=== PATIENT | female | born 1995 | race Caucasian/White ===

== ENCOUNTER 2017-08-13 06:42 | Day surgery (SDC) | payer OTHER ==
[2017-08-10 16:28] VITALS: BMI 25.1
[2017-08-13] VITALS (16 sets, daily range): BP systolic 138–164; BP diastolic 66–104; PULSE 66–96; RESP 12–25; Ht 167.6 cm; Wt 72.0 kg
[~2017-08-13] VITALS: Ht 167.6 cm; Wt 72.0 kg
[~2017-08-13 06:42] MED LIST: AMPH10CA9 PO; AMPH15TA PO; BIRTH CONTROL PO
[2017-08-13] MEDS ORDERED: ROCURONIUM 50 MG INJ ONE (07:49)
[2017-08-13] MEDS ORDERED: LIDOCAINE 2% (SDV) 5 ML INJ ONE (07:50)
[2017-08-13] MEDS ORDERED: MIDAZOLAM 1 MG/ML 2 ML INJ ONE (07:50)
[2017-08-13] MEDS ORDERED: ONDANSETRON 4 MG INJ ONE (07:50)
[2017-08-13] MEDS ORDERED: CEFAZOLIN 1 GM INJ ONE (07:50)
[2017-08-13] MEDS ORDERED: KETOROLAC 30 MG INJ ONE (07:50)
[2017-08-13] MEDS ORDERED: DEXAMETHASONE 4 MG/ML 1 ML INJ ONE (07:50)
[2017-08-13] MEDS ORDERED: PROPOFOL 20 ML ONE (07:50)
[2017-08-13] MEDS ORDERED: FENTAnyl 50 MCG/ML VIAL ONE (07:50)
[2017-08-13] MEDS ORDERED: NEOSTIGMINE 3 MG/3 ML SYRINGE ONE (07:50)
[2017-08-13] MEDS ORDERED: ROPIVACAINE 0.5 % 30 ML VIAL ONE ×2 (07:50→10:13)
--- NOTE | 2017-08-13 08:45 | OPPN ---
Date/Time of Note Date/Time of Note DATE: 08/13/17 TIME: 08:43 Operative Report Preoperative Diagnosis Retained painful hardware R ankle Postoperative Diagnosis same Operation/Procedure Performed Removal of deep hardware R ankle Surgeon see signature line respiratory care assistant MD Pebbles Anesthesia: general Estimated blood loss: minimal Transfusion Required none Specimen none Grafts/Implants none Complications none PATRICK JUAREZ MD Aug 13, 2017 08:45
--- NOTE | 2017-08-13 08:45 | OPPN ---
Date/Time of Note Date/Time of Note DATE: 08/13/17 TIME: 08:43 Operative Report Preoperative Diagnosis Retained painful hardware R ankle Postoperative Diagnosis same Operation/Procedure Performed Removal of deep hardware R ankle Surgeon see signature line faculty i on call medical assistant MD Pebbles Anesthesia: general Estimated blood loss: minimal Transfusion Required none Specimen none Grafts/Implants none Complications none PATRICK JUAREZ MD Aug 13, 2017 08:45
--- NOTE | 2017-08-13 08:45 | OPPN ---
Date/Time of Note Date/Time of Note DATE: 08/13/17 TIME: 08:43 Operative Report Preoperative Diagnosis Retained painful hardware R ankle Postoperative Diagnosis same Operation/Procedure Performed Removal of deep hardware R ankle Surgeon see signature line assistant librarian MD Pebbles Anesthesia: general Estimated blood loss: minimal Transfusion Required none Specimen none Grafts/Implants none Complications none PATRICK JUAREZ MD Aug 13, 2017 08:45
[2017-08-13] MEDS ORDERED: MIDAZOLAM 1 MG/ML 2 ML INJ IV PRN (10:00)
[2017-08-13] MEDS ORDERED: DIPHENHYDRAMINE 50 MG INJ IV PRN (10:00)
[2017-08-13] MEDS ORDERED: MEPERIDINE 25 MG INJ IV PRN (10:00)
[2017-08-13] MEDS ORDERED: ALBUTEROL 0.083% (NEB) 2.5 MG/3 ML AMP HHN PRN (10:00)
[2017-08-13] MEDS ORDERED: LABETALOL HCL 20MG INJ IV PRN (10:00)
[2017-08-13] MEDS ORDERED: FENTAnyl 50 MCG/ML VIAL IV PRN ×3 (10:00)
[2017-08-13] MEDS ORDERED: EPHEDrine SULFATE 50 MG/5 ML SYG IV PRN (10:00)
[2017-08-13] MEDS ORDERED: IPRATROPIUM (NEB) 0.5 MG/2.5 ML AMP HHN PRN (10:00)
[2017-08-13] MEDS ORDERED: HYDROmorphONE (0.2 MG/ML) 10ML SYG IV PRN ×3 (10:00)
[2017-08-13] MEDS ORDERED: TRIMETHOBENZAMIDE 100 MG/ML VIAL IM PRN (10:00)
[2017-08-13] MEDS ORDERED: ONDANSETRON 4 MG INJ IV PRN ×2 (10:00→11:30)
[2017-08-13] MEDS ORDERED: OXYCODONE/ACETAMINOPHEN (5/325) TAB PO PRN ×4 (10:00→11:30)
[2017-08-13] MEDS ORDERED: POLYMYXIN/BACITRACIN 1L IRRIG ONE (10:13)
[2017-08-13] MEDS ORDERED: POVIDONE IODINE 10% 28.4 GM OINT ONE (10:13)
[2017-08-13] MEDS ORDERED: SUGAMMADEX SODIUM 200 MG/2 ML VIAL IV ONE (10:44)
[2017-08-13] MEDS ORDERED: METOCLOPRAMIDE 10 MG INJ ONE (10:46)
[2017-08-13] MEDS ORDERED: SOD CHLORIDE 0.9% 1,000 ML IV SCH (11:19)
--- NOTE | 2017-08-13 11:28 | HPN ---
Date/Time of Note Date/Time of Note DATE: 08/13/17 TIME: 11:27 Interval H&P Admission Note Pt. seen H&P reviewed: No system changes PATRICK JUAREZ MD Aug 13, 2017 11:28
[2017-08-13] MEDS ORDERED: morphine 2 MG INJ IV PRN (11:30)
--- NOTE | 2017-08-13 11:30 | OPPN ---
Date/Time of Note Date/Time of Note DATE: 08/13/17 TIME: 11:28 Operative Report Preoperative Diagnosis R ankle pain and anterior impingement Postoperative Diagnosis same Operation/Procedure Performed R ankle arthroscopy with extensive debridement Surgeon see signature line contract assistant MD Pebbles Anesthesia: general Estimated blood loss: 0 - 10 ml's Transfusion Required none Specimen none Grafts/Implants none Complications none PATRICK JUAREZ MD Aug 13, 2017 11:30
--- NOTE | 2017-08-13 11:30 | OPPN ---
Date/Time of Note Date/Time of Note DATE: 08/13/17 TIME: 11:28 Operative Report Preoperative Diagnosis R ankle pain and anterior impingement Postoperative Diagnosis same Operation/Procedure Performed R ankle arthroscopy with extensive debridement Surgeon see signature line microbiology lab assistant MD Pebbles Anesthesia: general Estimated blood loss: 0 - 10 ml's Transfusion Required none Specimen none Grafts/Implants none Complications none PATRICK JUAREZ MD Aug 13, 2017 11:30
--- NOTE | 2017-08-13 11:30 | OPPN ---
Date/Time of Note Date/Time of Note DATE: 08/13/17 TIME: 11:28 Operative Report Preoperative Diagnosis R ankle pain and anterior impingement Postoperative Diagnosis same Operation/Procedure Performed R ankle arthroscopy with extensive debridement Surgeon see signature line special events assistant MD Pebbles Anesthesia: general Estimated blood loss: 0 - 10 ml's Transfusion Required none Specimen none Grafts/Implants none Complications none PATRICK JUAREZ MD Aug 13, 2017 11:30
[2017-08-13] MEDS: hydrALAzine 20 MG INJ IV PRN ×2 (11:59→12:20)
--- NOTE | 2017-08-13 12:02 | OPR ---
DATE OF OPERATION: 08/13/2017 PREOPERATIVE DIAGNOSES: Soft tissue impingement, right ankle. POSTOPERATIVE DIAGNOSES: 1. Central and anteromedial soft tissue impingement, right ankle. 2. Distal tibial medial osteophytes. 3. 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 SURGERY: 1. Arthroscopy, right ankle, with soft tissue distraction. 2. Extensive debridement of the ankle. 3. Short-leg splint. SURGEON: Patrick Ku MD. RESEARCH LABORATORY MANAGER: Jaxon Rogel. ANESTHESIA: General with popliteal block. TOURNIQUET TIME: 59 minutes. DESCRIPTION OF PROCEDURE: The patient taken to the operating room and placed in supine position. S atisfactory popliteal block was given. Satisfactory general anesthesia was administered, 2 grams of Ancef given intravenously. The right thigh secured in the thigh garcia was carefully padded. The right leg was prepped and draped in the usual manner. Superficial peroneal nerve was marked out. T he ankle was placed with the tourniquet up 250 mmHg, and then put into soft tissue distraction. Standard anteromedial, anterolateral, and posterolateral portals were used, using extreme caution to avoid injuring neurovascular structures. There was synovitis and scar tissue quite thick along the medial malleolar talar articulation extending almost to the central portion of the talus. I felt t his was probably what was causing her pain. The lateral gutter had synovitis as did the trifurcatio n. There was scar tissue anterior medially. Centrally was smooth and glistening as was posteriorly . There was a hemorrhagic posterolateral synovial nodule and synovitis posteriorly. Shaver was ins erted, the medial corner was debrided, medial gutter was debrided. The deltoid ligament was intact. Soft tissue off the distal tibia from the talus was cleaned all the way across. Once this was all excised, there was an osteophyte along the medial malleolus extending over the medial corner of the distal tibia. Bur was used to bur this down and smooth it. There was an area of chondromalacia gr davidson II to III with a Anjelica type lesion at the junction of the medial malleolus and distal tibia with partial thickness. This was debrided with a suction basket and smoothed with a shaver. There was a lso some mild grade I chondromalacia along the anteromedial talus were that may have been hitting th e area of the tibia. This was smoothed as well. The hemorrhagic synovial nodule was excised with a shaver and the synovitis was excised posteriorly. The posterior ligaments were intact. A 70-degre e arthroscope was used to debride the medial and lateral gutters. The anterior talofibular ligament looked intact otherwise. All the soft tissue was removed. All the bony prominences medially were removed. Once we were done, the ankle moved much more freely. No other abnormalities were seen. I t was felt this was the problem and the source of her pain. The wounds were then irrigated clear. Wounds were closed with 4-0 black nylon. Compression dressing and posterior splint were applied in neutral position. Interprocedure sponge and needle count was correct. Patient tolerated procedure well. Dictated By: PATRICK BRODERICK/NELSY Conf#: [id number] DID#: [id number]
--- NOTE | 2017-08-20 21:52 | OPR ---
DATE OF OPERATION: 08/13/2017 ADDENDUM INVESTMENT ASSOCIATE ORTHOPEDIC SURGEON: During the procedure, an assistant sales director orthopedic surgeon was used at my request. The assistant sales director helped with manipulation and distraction of the ankle. The assistant sales director also helped with debridement of the ankle while I held the arthroscope behind the ankle in certain positions. Without a skilled assistant sales director this could not have been done and should be compensated appropriately. Dictated By: PATRICK BRODERICK/NELSY Conf#: [id number] DID#: [id number] MTDD
--- NOTE | 2017-08-20 21:52 | OPR ---
DATE OF OPERATION: 08/13/2017 ADDENDUM COMPLIANCE SPECIALIST ORTHOPEDIC SURGEON: During the procedure, an assistant operations manager orthopedic surgeon was used at my request. The assistant operations manager helped with manipulation and distraction of the ankle. The assistant operations manager also helped with debridement of the ankle while I held the arthroscope behind the ankle in certain positions. Without a skilled assistant operations manager this could not have been done and should be compensated appropriately. Dictated By: PATRICK BRODERICK/NELSY Conf#: [id number] DID#: [id number] MTDD
--- NOTE | 2017-08-20 21:52 | OPR ---
DATE OF OPERATION: 08/13/2017 ADDENDUM JUNIOR ACCOUNTING CLERK ORTHOPEDIC SURGEON: During the procedure, an warehouse assistant orthopedic surgeon was used at my request. The warehouse assistant helped with manipulation and distraction of the ankle. The warehouse assistant also helped with debridement of the ankle while I held the arthroscope behind the ankle in certain positions. Without a skilled warehouse assistant this could not have been done and should be compensated appropriately. Dictated By: PATRICK BRODERICK/NELSY Conf#: [id number] DID#: [id number] MTDD
== END 2017-08-13 13:45 | disposition home or self-care (01) ==
LOC: SDS 06:42
PROVIDERS: ATTEND Orthopaedic Surgery
DX: M25.871 Other specified joint disorders, right ankle and foot (principal); M25.771 Osteophyte, right ankle; M94.271 Chondromalacia, right ankle and joints of right foot
CPT/HCPCS: 29891; 84703; J0360; J0690; J1100; J1885; J2250; J2405; J2795; J3010; J2710; J2765